=== PATIENT | male | born 1990 | race Caucasian/White ===

== ENCOUNTER → 2020-08-24 09:24 | Outpatient (BNVA) | payer MEDICAID, SELFPAY | PROVIDERS: Visit Provider Specialist | DX: G40.219 Localization-related (focal) (partial) symptomatic epilepsy and epileptic syndromes with complex partial seizures, intractable, without status epilepticus (principal); F32.9 Major depressive disorder, single episode, unspecified; M62.838 Other muscle spasm; G57.01 Lesion of sciatic nerve, right lower limb; F17.290 Nicotine dependence, other tobacco product, uncomplicated | CPT/HCPCS: 99205 ==

== ENCOUNTER → 2020-09-08 10:03 | Outpatient (BNVA) | payer MEDICAID, SELFPAY | PROVIDERS: Referring Provider Specialist; Visit Provider Specialist | DX: G40.219 Localization-related (focal) (partial) symptomatic epilepsy and epileptic syndromes with complex partial seizures, intractable, without status epilepticus (principal); F17.210 Nicotine dependence, cigarettes, uncomplicated | CPT/HCPCS: 95816 ==

== ENCOUNTER 2020-09-24 05:57 | Emergency (ER) | payer MEDICAID, SELFPAY ==
[2020-09-24 06:05] VITALS: BP 105/64; PULSE 66; RESP 16; TEMP 36.6; O2SAT 100; BMI 17.4
[2020-09-24 06:13] VITALS: BP 105/64; PULSE 77; RESP 16; TEMP 36.6; O2SAT 100
--- NOTE | 2020-09-24 06:27 | W.ED.SEIZURE ---
HPI - Seizure General: Chief Complaint: Seizure Stated Complaint: possible siezure, cut on side of face Time Seen by Provider: 09/24/20 06:13 History of Present Illness: HPI Narrative: This patient is a 30-year-old male who presents to the emergency department with complaint of a laceration/scratch to the left side of his face. Patient states he believes he had a seizure in the middle of night causing the abrasion. No active bleeding at this time. Abrasion appears to be able to be healed with Dermabond but does not require any sutures. I did discuss at length with patient about concerns. Patient states he has a long history of seizure activity and is followed locally by physician. Patient declined medical screening exam for evaluation of his seizures. Patient wishes just to have his wound checked. Patient's tetanus shot is up-to-date. complaint: seizure Associated symptoms: Deny chest pain, chills or fever(s) Review of Systems General: Reports: 10 or more systems reviewed and unremarkable except in HPI and below Const: Denies: fever(s), chills, body aches or fatigue Eyes: Denies: change in vision or blurry vision ENMT: Denies: throat pain, hoarseness or mouth pain Card: Denies: chest pain, palpitations, irregular heart rhythm, edema, swelling of feet/ankles or lightheadedness Resp: Denies: dyspnea, productive cough, non-productive cough, wheezing or pain on inspiration GI: Denies: abdominal pain, nausea or vomiting : Denies: flank pain, dysuria, urinary frequency, urinary urgency or urinary hesitancy Musc: Denies: neck pain, back pain, extremity pain, extremity swelling, joint pain, joint swelling, joint redness, joint warmth or limited range of motion Skin/Breast: Reports: other (Laceration); Denies: rash, pruritus, erythema or skin tenderness Neuro: Reports: seizure-like activity; Denies: headache(s), numbness in extremities or weakness in extremities Psych: Denies: anxiety or depression PFSH ED PFSH: Social History Smoking and tobacco status: current every day smoker e-cigarettes Alcohol intake: never History of recent travel: No Physical Exam Const: COMMON NORMALS: no acute distress, average body habitus, patient oriented x3, no limitations, healthy appearing, alert and well nourished HENMT: COMMON NORMALS: normocephalic, atraumatic, hearing grossly normal bilaterally, external ears normal, EAC's normal, TM's normal bilaterally, Normal external nose present, Normal nasal mucous membranes and turbinates present, moist oral mucous membranes, oropharynx normal, dentition normal and gingiva normal HEAD & SCALP: normocephalic and atraumatic NOSE: Normal external nose present and Normal nasal mucous membranes and turbinates present EXTERNAL EAR: Yes external ears normal EXTERNAL AUDITORY CANAL: EAC's normal TYMPANIC MEMBRANE: TM's normal bilaterally Neck/C-Spine: COMMON NORMALS: full ROM, no lymphadenopathy, supple, no meningeal signs, no JVD, Thyroid normal and No carotid bruits THYROID: Thyroid normal Chest: COMMONS NORMALS: normal inspection of the chest, normal palpation of entire chest wall, normal inspection of the breasts and normal palpation of the breasts Breast/axilla inspection: Yes normal inspection of the breasts BREAST/AXILLA PALPATION: Yes normal palpation of the breasts Resp: COMMON NORMALS: normal respiratory effort, No retractions, No use of accessory muscles, clear to auscultation bilaterally and percussion normal AUSCULTATION: clear to auscultation bilaterally PERCUSSION: percussion normal Cardio: COMMON NORMALS: no JVD, regular rate, regular rhythm, S1 normal heart sound present, S2 normal heart sound present, No gallops present (Cardio), No clicks present (Cardio), No murmurs present (Cardio), No rub (Cardio) and Peripheral pulses 2+ throughout RATE: regular rate RHYTHM: regular rhythm HEART SOUNDS: S1 normal heart sound present and S2 normal heart sound present PERIPHERAL PULSES: Peripheral pulses 2+ throughout GI: COMMON NORMALS: Normal to inspection, nondistended, normoactive bowel sounds present, Soft to palpation, non-tender, No hepatosplenomegaly present, no masses and no bruits PALPATION: Yes Soft to palpation and Yes No hepatosplenomegaly present : COMMON NORMALS: Yes no CVA tenderness BLADDER/KIDNEY EXAM: Yes no CVA tenderness Back/Pelvis: COMMON NORMALS: no CVA tenderness, thoracic and lumbar spine normal to inspection, no thoracic nor lumbar tenderness, thoraco-lumbar ROM normal and straight leg raise negative bilaterally Extremity: COMMON NORMALS: normal to inspection, full ROM, capillary refill normal, no joint enlargement, no clubbing, cyanosis or edema, no calf tenderness and no pedal edema Neuro: COMMON NORMALS: patient oriented x3 SENSORIUM/ORIENTATION: Yes alert MENINGEAL SIGNS: Yes no meningeal signs Skin: SKIN IMAGES (MALE): 1. Small thin abrasion repaired with Dermabond. No active bleeding Procedures Laceration Laceration 1: Site: face Side (If applicable): left Size (cm): 2 Description: linear and clean Depth: simple, single layer Pre-repair: irrigated extensively Skin layer closed with: other (Dermabond without difficulty) Course Reevaluation(s): Reevaluation #1: This patient is a 30-year-old male who presents to the emergency department with complaint of a laceration/scratch to the left side of his face. Patient states he believes he had a seizure in the middle of night causing the abrasion. No active bleeding at this time. Abrasion appears to be able to be healed with Dermabond but does not require any sutures. I did discuss at length with patient about concerns. Patient states he has a long history of seizure activity and is followed locally by physician. Patient declined medical screening exam for evaluation of his seizures. Patient wishes just to have his wound checked. Patient's tetanus shot is up-to-date. Wound cleansed with saline and repaired with Dermabond. Patient be discharged per his request. Patient should follow up with his primary care physician or neurology for chronic seizure activity for possible medication adjustments if needed. Time: 06:30 Vital Signs: Vital signs: Vital Signs Temperature 97.8 F 09/24/20 06:13 Pulse Rate 77 09/24/20 06:13 Respiratory Rate 16 09/24/20 06:13 Blood Pressure 105/64 09/24/20 06:13 Pulse Oximetry 100 09/24/20 06:13 MDM - Seizure MDM Narrative: Medical decision making narrative: This patient is a 30-year-old male who presents to the emergency department with complaint of a laceration/scratch to the left side of his face. Patient states he believes he had a seizure in the middle of night causing the abrasion. No active bleeding at this time. Abrasion appears to be able to be healed with Dermabond but does not require any sutures. I did discuss at length with patient about concerns. Patient states he has a long history of seizure activity and is followed locally by physician. Patient declined medical screening exam for evaluation of his seizures. Patient wishes just to have his wound checked. Patient's tetanus shot is up-to-date. Wound cleansed with saline and repaired with Dermabond. Patient be discharged per his request. Patient should follow up with his primary care physician or neurology for chronic seizure activity for possible medication adjustments if needed. Discharge Plan Discharge Patient Disposition: Home Clinical Impression: Seizure disorder, Laceration of face Condition: Stable Prescriptions: No Action citalopram 20 mg tablet 20 mg PO DAILY Qty: 30 RF: 5 levetiracetam [Keppra XR] 750 mg tablet extended release 24 hr 1,500 mg PO DAILY Qty: 60 RF: 5 lorazepam 2 mg/mL concentrate 2 mg buccal DAILY PRN (Reason: sedation) Qty: 30 RF: 1 lorazepam [Lorazepam Intensol] 2 mg/mL concentrate 2 mg PO ONCE PRN (Reason: seizures) Qty: 30 RF: 2 Discharge Orders: Discharge ED (Routine); Ordered 09/24/20 Ordered By: Matt Angeles Referrals: Senait Mei MD [Primary Care Provider] - Patient Instructions: Opioid Safety Activity Restrictions/Additional Instructions: Wound cleansed with saline and repaired with Dermabond. Patient be discharged per his request. Patient should follow up with his primary care physician or neurology for chronic seizure activity for possible medication adjustments if needed. Coding Level of Care Code ED Information Technology Security Manager for Tod Caro
[2020-09-24] MEDS: chlorPROMazine 25 mg Tablet PO (07:08)
[2020-09-24 07:13] VITALS: BP 105/64; PULSE 77; RESP 16; TEMP 36.6; O2SAT 100
== END 2020-09-24 07:13 | disposition home or self-care (01) ==
PROVIDERS: Emergency Provider Emergency Medicine; PCP Specialist
DX: G40.909 Epilepsy, unspecified, not intractable, without status epilepticus (principal); S01.81XA Laceration without foreign body of other part of head, initial encounter; F17.290 Nicotine dependence, other tobacco product, uncomplicated; X58.XXXA Exposure to other specified factors, initial encounter
CPT/HCPCS: 12011; 99283; Q0161

== ENCOUNTER 2020-10-27 15:19 | Outpatient (CLI) | payer MEDICAID, SELFPAY ==
--- NOTE | 2020-10-27 15:30 | MR_ITS ---
WS: [id number] MRI HEAD WITHOUT CONTRAST TECHNIQUE: Sagittal T1, T2 axial, T2 axial FLAIR, axial and coronal T1 images, axial susceptibility w eighted imaging, axial diffusion weighted images, and coronal T2 images were obtained. CLINICAL INFORMATION: G40.909 - Epilepsy, unspecified, not intractable, without... COMPARISON: None. FINDINGS: No evidence of restricted diffusion to suggest acute ischemia. Ventricular system and basal cisterns are patent. Foci of T2 signal abnormality in both anterior temporal lobes somewhat symmetric in distr ibution. This has a chronic appearance and is subcortical in location with involvement of the right g reater than left cortex and adjacent white matter. Suggestion of mild cortical thickening on the righ t. Small amount of associated T1 hypointensity in these areas more prominent on the left. Primary con siderations include focal cortical dysplasia, parr matter heterotopia, or congenital migration anomal ies. Less likely additional considerations include glioma related to prior trauma, remote ischemia, o r remote infection/inflammatory insult. No hemosiderin in these areas. Mesial temporal lobes are norm al in appearance. Normal amygdala. No significant hippocampal atrophy or mesial temporal sclerosis. Additional tiny punctate focus of T2 signal abnormality in the right posterior frontal lobe of doubtf ul clinical significance. Congenital vermian atrophy. Benign magna cisterna magna. Cerebellar hemisph eres are otherwise normal in appearance. Normal midbrain and ric. Normal brain stem. Normal vascular flow voids at the skull base. No extra-axial fluid collections. No evidence of mass or mass effect. Sinusitis right maxillary sinus with opacification. Paranasal sinuses and mastoid air cells are other cheng well aerated. Normal optic chiasm and pituitary infundibulum. MR/MR head wo con* [id number] IMPRESSION: 1. Small foci of T2 hyperintensity in the bilateral anterior temporal lobes lynn bcortical in location extending into the adjacent white matter measuring 8 mm o n the left and 9 mm on the right. Involvement of the cortex right greater than left. These are nonspecific in appearance but differential considerations inclu de focal cortical dysplasia, congenital migrational anomalies, parr matter hete rotopia, or focal gliosis which could be related to remote prior trauma, ischem ia, or infectious/inflammatory etiologies. Recommend further evaluation with ga dolinium to ensure no enhancement if this has not been performed previously. 2. No other suspicious intracranial signal abnormalities. 3. Mesial temporal lobes are normal in appearance. Normal parahippocampal gyru s and amygdala. 4. 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 5. Left maxillary sinusitis. 6. No hemosiderin in the anterior temporal lobes.
== END 2020-10-27 15:20 | disposition home or self-care (01) ==
LOC: RADSHAW 15:24
PROVIDERS: PCP Specialist; Visit Provider Specialist
DX: G40.909 Epilepsy, unspecified, not intractable, without status epilepticus (principal); J32.0 Chronic maxillary sinusitis; G31.9 Degenerative disease of nervous system, unspecified
CPT/HCPCS: 70551

== ENCOUNTER → 2020-11-03 10:26 | Outpatient (BNVA) | payer MEDICAID, SELFPAY | PROVIDERS: PCP Specialist; Visit Provider Specialist | DX: G40.219 Localization-related (focal) (partial) symptomatic epilepsy and epileptic syndromes with complex partial seizures, intractable, without status epilepticus (principal); G40.119 Localization-related (focal) (partial) symptomatic epilepsy and epileptic syndromes with simple partial seizures, intractable, without status epilepticus; F17.290 Nicotine dependence, other tobacco product, uncomplicated | CPT/HCPCS: 99215 ==

== ENCOUNTER → 2020-12-15 10:44 | Outpatient (BNVA) | payer MEDICAID, SELFPAY | PROVIDERS: Visit Provider Specialist | DX: G40.119 Localization-related (focal) (partial) symptomatic epilepsy and epileptic syndromes with simple partial seizures, intractable, without status epilepticus (principal); G43.001 Migraine without aura, not intractable, with status migrainosus | CPT/HCPCS: 96372; 99215; J1885 ==

== ENCOUNTER 2021-03-16 17:31 | Emergency (ER) | payer MEDICAID, SELFPAY ==
[2021-03-16] VITALS (29 sets, daily range): BP systolic 87–121; BP diastolic 49–79; PULSE 43–59; RESP 14–17; O2SAT 98–100; BMI 16.7
--- NOTE | 2021-03-16 17:38 | CTR_ITS ---
PROCEDURE INFORMATION: Exam: CT Maxillofacial Without Contrast Exam date and time: 03/16/2021 5:38 PM Age: 30 years old Clinical indication: Other: Od. PT intubated; Additional info: Fall TECHNIQUE: Imaging protocol: Computed tomography images of the face without contrast. Sagittal and coronal reformatted images were created and reviewed. Radiation optimization: All CT scans at this facility use at least one of these dose optimization techniques: automated exposure control; mA and/or kV adjustment per patient size (includes targeted exams where dose is matched to clinical indication); or iterative reconstruction. COMPARISON: CT facial bones wo con* [id number] 02/13/2019 12:08 AM RADIATION DOSE METRICS: Total DLP (mGy-cm): 754.45 FINDINGS: Tubes, catheters and devices: There is an endotracheal tube extending into the hypopharynx. The tip is not included in the study. Orbital cavity: Globes and lenses, extraocular muscles, and optic nerves are intact bilaterally. No acute intraorbital abnormality. Bones/joints: Right and left temporomandibular joints are intact. Right and left pterygoid plates are intact. Mild left nasal septal deviation. There is a mildly depressed fracture of the mid left zygomatic arch. Age is indeterminate, this is new compared with the prior study however. Paranasal sinuses: Moderate opacification in the right maxillary sinus and mild opacification in the right and left sphenoid and left maxillary sinuses. Mastoid air cells: Visualized mastoid air cells are clear. Soft tissues: No soft tissue swelling. No radiopaque foreign body. Dental: Cavitary disease in multiple maxillary and mandibular teeth. Nasopharynx: There is fluid in the nasopharynx, oropharynx, and hypopharynx. There is a somewhat linear shaped focus in the inferior nasopharynx and oropharynx (series 602, images 31-45 and series 4, images 18-31). A possible foreign body cannot be ruled out. Recommend clinical correlation. CT/CT facial bones wo con* [id number] IMPRESSION: 1. There is a mildly depressed fracture of the mid left zygomatic arch. Age is indeterminate, this is new compared with the prior study however. 2. There is a somewhat linear shaped focus in the inferior nasopharynx and oropharynx. A possible foreign body cannot be ruled out. Recommend clinical correlation. 3. There is fluid in the nasopharynx, oropharynx, and hypopharynx. 4. Moderate opacification in the right maxillary sinus and mild opacification in the right and left sphenoid and left maxillary sinuses. 5. Cavitary disease in multiple maxillary and mandibular teeth. 6. Incidental/nonacute findings are listed in the report. Radiation Dose CTDIVOL = (mGy): DLP = 754.45 (mGy-cm)
--- NOTE | 2021-03-16 17:38 | ECG_ITS ---
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 Measurements Intervals [place] Rate: 42 P: 62 DC: 152 QRS: 78 QRSD: 97 T: 75 QT: 563 QTc: 475 Interpretive Statements SINUS BRADYCARDIA PROLONGED QT INTERVAL No previous ECG available for comparison Electronically Signed On 03-17-2021 9:58:56 CEMENT MASON by Mabel Espino M.D. [id number]
--- NOTE | 2021-03-16 17:38 | XRR_ITS ---
PROCEDURE INFORMATION: Exam: XR Chest Exam date and time: 03/16/2021 5:38 PM Age: 30 years old Clinical indication: Device placement; Ett placement (vent status); Additional info: Respiratory failure TECHNIQUE: Imaging protocol: XR of the chest. Views: 1 view. COMPARISON: CT Chest/Abdomen/Pelvis wo IV 03/12/2019 4:13 PM FINDINGS: Tubes, catheters and devices: There is an endotracheal tube with the tip 5.1 cm above the bonnie. Lungs: Lungs are clear bilaterally. Pleural spaces: No pleural effusion. No pneumothorax. Heart/Mediastinum: The cardiac silhouette and mediastinal contours are unremarkable. Bones/joints: Unremarkable for age. XR/XR chest 1V portable [id number] IMPRESSION: 1. No acute cardiopulmonary process. 2. There is an endotracheal tube with the tip 5.1 cm above the bonnie. Radiation Dose CTDIVOL = (mGy): DLP = (mGy-cm)
--- NOTE | 2021-03-16 17:38 | CTR_ITS ---
PROCEDURE INFORMATION: Exam: CT Head Without Contrast Exam date and time: 03/16/2021 5:38 PM Age: 30 years old Clinical indication: Other: Od. PT intubated; Additional info: Fall TECHNIQUE: Imaging protocol: Computed tomography of the head without contrast. Sagittal and coronal reformatted images were created and reviewed. Radiation optimization: All CT scans at this facility use at least one of these dose optimization techniques: automated exposure control; mA and/or kV adjustment per patient size (includes targeted exams where dose is matched to clinical indication); or iterative reconstruction. COMPARISON: MR head wo con* [id number] 10/27/2020 3:54 PM RADIATION DOSE METRICS: Total DLP (mGy-cm): 811.36 FINDINGS: Brain: No intra-axial or extra-axial masses. Salazar-white matter differentiation is preserved. No cerebral edema. No extra-axial fluid collections. No evidence for Chiari 1 malformation. No acute intracranial hemorrhage. No acute infarct. No midline shift. Incidental note of a wero cisterna magna. Cerebral ventricles: No hydrocephalus. Paranasal sinuses: Moderate opacification in the visualized right maxillary sinus and mild opacification in the right and left sphenoid sinuses. Mastoid air cells: Unremarkable as visualized. Orbital cavity: No acute abnormality in the visualized orbits. Bones/joints: No acute fracture. Soft tissues: No acute abnormality of the extracranial soft tissues. CT/CT head wo con* [id number] IMPRESSION: 1. No acute abnormality of the brain. 2. Incidental/nonacute findings are listed in the report. Radiation Dose CTDIVOL = (mGy): DLP = 811.36 (mGy-cm)
[2021-03-16 17:39] LABS: Glucose Point of Care 158 mg/dL (70-110)
--- NOTE | 2021-03-16 17:39 | CTR_ITS ---
PROCEDURE INFORMATION: Exam: CT Cervical Spine Without Contrast Exam date and time: 03/16/2021 5:39 PM Age: 30 years old Clinical indication: Other: Od. PT intubated; Additional info: Eval fracture TECHNIQUE: Imaging protocol: Computed tomography images of the cervical spine without contrast. Sagittal, oblique axial, and coronal reformatted images were created and reviewed. Radiation optimization: All CT scans at this facility use at least one of these dose optimization techniques: automated exposure control; mA and/or kV adjustment per patient size (includes targeted exams where dose is matched to clinical indication); or iterative reconstruction. COMPARISON: CT Cervical Spine wo* [id number] 03/17/2019 8:24 PM RADIATION DOSE METRICS: Total DLP (mGy-cm): 323.83 FINDINGS: Tubes, catheters and devices: There is an endotracheal tube extending into the trachea, the tip is not included in the study. Bones/joints: Vertebral body height is maintained. No subluxation. Normal bone mineralization. No acute fracture. Discs/Spinal canal/Neural foramina: No significant disc protrusion. No severe spinal canal stenosis. No significant neural foraminal narrowing. Epidural space: No evidence for an epidural hematoma. Nasopharynx: There is a somewhat linear shaped focus in the inferior nasopharynx and oropharynx. A possible foreign body cannot be ruled out (series 3, images 15-28 and series 601, images 23-36). There is fluid in the nasopharynx, oropharynx, and hypopharynx. Lungs: Visualized lungs are clear. Soft tissues: No soft tissue swelling. No radiopaque foreign body. CT/CT cervical spin wo con* [id number] IMPRESSION: 1. There is a somewhat linear shaped focus in the inferior nasopharynx and oropharynx. A possible foreign body cannot be ruled out. Recommend clinical correlation. 2. No acute fracture of the cervical spine. 3. There is fluid in the nasopharynx, oropharynx, and hypopharynx. Radiation Dose CTDIVOL = (mGy): DLP = 323.83 (mGy-cm)
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
[2021-03-16] MEDS: propofol 1,000 MG/100 ML INJ 16.2 MG IV (17:58)
[2021-03-16 18:15] LABS: ABG PCO2 39.6 mmHg (35-45); ABG PH Result 7.43 (7.35-7.45); Arterial Blood Gas Hematocrit 43.3 % (42-52); Base Excess ABG 2.1 mmol/L (-2.0-2.0); Blood Gas Allen Test Pos; Blood Gas Operator Identificat SH; Blood Gas Sample Site Radial, left; Blood Gas Sample Type Arterial; HCO3 ABG 26.4 mmol/L (22-26)
[2021-03-16 18:16] LABS: Blood Gas Tidal Volume 0.45; Oxygen Device NC
--- NOTE | 2021-03-16 18:22 | PC.NURSE ---
PROPOFOL STARTED AT 50MCG/KG PER PHYSICIAN. TITRATED DOWN TO 10MCG/KG D/T BP OF 85/50. WILL TITRATE PER PROTOCOL AND CONTINUE TO MONITOR BP.
[2021-03-16 18:33] LABS: Basophils % 0.3 %; Eosinophils % 0.3 %; Hematocrit 45.5 % (42.0-52.0); Hemoglobin 14.8 g/dL (11.7-16.6); Lymphocytes # 3.5 10^3/uL (0.8-4.8); Lymphocytes % 29.1 %; Mean Corpuscular HGB Conc 32.5 g/dL (30.0-36.0); Mean Corpuscular Hemoglobin 29.1 pg (28.0-34.0); Mean Corpuscular Volume 89.6 fl (80-94); Mean Platelet Volume 10.5 fL (7.4-10.4); Monocytes # 0.7 10^3/uL (0.2-0.9); Neutrophils # 7.63 10^3/uL (1.8-7.7); Nucleated Red Blood Cells % 0 %; Platelet Count 404 10^3/cmm (130-400); Red Blood Count 5.08 10^6/uL (4.1-5.3); White Blood Count 11.9 10^3/uL (4.0-10.0)
[2021-03-16 19:00] LABS: Troponin(5th) Baseline 6 ng/L (0-15)
[2021-03-16 19:02] LABS: Alanine Aminotransferase 13 U/L (0-41); Alcohol Level 16 mg/dL (0-10); Alkaline Phosphatase 96 IU/L (40-130); Aspartate Amino Transferase 17 U/L (0-40); Blood Urea Nitrogen 8 mg/dL (6-20); Calcium 9.7 mg/dL (8.5-10.5); Carbon Dioxide 23 mmol/L (22-29); Chloride 102 mmol/L (98-107); Creatine Phosphokinase 71 U/L (39-308); Globulin 3.8 g/dL (1.3-4.6); Glomerular Filtration Rate 160.4 mL/min (90-130); Glucose 221 mg/dL (65-115); Lipase 11 U/L (13-60); Osmolality Calculated 301 mOsm/kg (285-295); Salicylate 2.3 mg/dL (3-10); Sodium 143 mmol/L (136-145); Total Bilirubin 0.4 mg/dL (0.15-1.2); Total Protein 8.8 g/dL (6.6-8.7)
[2021-03-16 19:03] LABS: INR 1.01 (0.8-1.2)
[2021-03-16] MEDS: midazolam 1 mg/mL INJ 2 mL 4 MG (19:03)
[2021-03-16] MEDS: haloperidol inj 5 mg/mL INJ 1 mL IVP ×2 (19:03→19:48)
--- NOTE | 2021-03-16 19:03 | PC.NURSE ---
NURSE INSTRUCTED TO TITRATE PROPOFOL TO 50MCG/KG. BP 84/50.
[2021-03-16 19:04] LABS: Partial Thromboplastin Time 26.4 SECONDS (23.9-36.7)
[2021-03-16 19:10] LABS: Acetaminophen < 5.0 ug/mL (10-30); Anion Gap 21.2 (5-19)
[2021-03-16 19:11] LABS: Potassium 3.2 mmol/L (3.5-5.1)
[2021-03-16] MEDS: sodium chloride 0.9% 1,000 ML 999 ML IV ×4 (19:25→23:39)
[2021-03-16 20:41] LABS: Add Urine Microscopic? YES; Bilirubin Urine Neg (Negative); Blood Urine Neg (Negative); Glucose Urine UA Norm (Normal); Ketones Urine Negative (Negative); Leukocyte Esterase Urine Negative (Negative); Nitrate Urine Negative (Negative); Protein Urine 1+ (Negative); Urine Appearance Clear (CLEAR); Urine Color Yellow (Yellow); Urobilinogen Urine Neg (Negative); pH Urine 6 (5-7)
[2021-03-16 20:46] LABS: Add Urine Culture? No; Mucus Urine 4+ /hpf; RBC Urine 0-4 /hpf (0-2); Squamous Epithelial Cell Urine RARE /hpf (0-5); WBC Urine RARE /hpf (0-5)
[2021-03-16 20:48] LABS: Troponin 5 2HR 19.55 ng/L (0-15)
[2021-03-16 20:49] LABS: Amphetamines Screen Urine Negative (Negative); Barbiturates Screen Urine Negative (Negative); Benzodiazepines Screen Urine Positive (Negative); Cocaine Screen Urine Negative (Negative); Opiate Screen Urine Positive (Negative); PCP Screen Urine Negative (Negative); THC Screen Urine Positive (Negative)
[2021-03-16 20:55] LABS: Troponin 5 2HR Delta 13.55 ABS# (0-10)
--- NOTE | 2021-03-16 21:19 | PC.NURSE ---
sent Pts wallet, Phone, and clothing home with mother.
[2021-03-16 21:26] LABS: SARS Covid-2 Antigen Negative (Negative)
[2021-03-16] MEDS: magnesium sulfate premix 2 GM/50 ML PIGGYBACK IV (22:21)
[2021-03-16] MEDS: propofol 1,000 MG/100 ML INJ 1 MG IV (23:22)
== END 2021-03-16 23:48 ==
PROVIDERS: Emergency Provider Emergency Medicine
DX: F19.20 Other psychoactive substance dependence, uncomplicated (principal); R41.82 Altered mental status, unspecified; J96.90 Respiratory failure, unspecified, unspecified whether with hypoxia or hypercapnia; Z20.822 Contact with and (suspected) exposure to COVID-19
CPT/HCPCS: 36415; 36416; 36600; 51702; 70450; 70486; 71045; 72125; 80053; 80306; 80307; 81001; 82550; 82803; 82962; 83690; 84484; 85025; 85610; 85730; 87426; 93005; 94002; 94799; 96365; 96366; 96367; 96375; 99291; J1630; J2250; J2704; J3010; J3475; J3490; J7030

== ENCOUNTER → 2021-05-03 08:33 | Outpatient (BNVA) | payer MEDICAID, SELFPAY | PROVIDERS: Visit Provider Specialist | DX: G40.119 Localization-related (focal) (partial) symptomatic epilepsy and epileptic syndromes with simple partial seizures, intractable, without status epilepticus (principal); F17.290 Nicotine dependence, other tobacco product, uncomplicated | CPT/HCPCS: 99214 ==

== ENCOUNTER 2021-07-11 14:07 | Emergency (ER) | payer MEDICAID, SELFPAY ==
--- NOTE | 2021-07-11 14:13 | CTR_ITS ---
PROCEDURE INFORMATION: Exam: CT Head Without Contrast Exam date and time: 07/11/2021 2:30 PM Age: 31 years old Clinical indication: Condition or disease; Convulsions or seizures; Epilepsy; Severity not specified; Unspecified; Patient HX: Seizure w fall on concrete - HX of sz TECHNIQUE: Imaging protocol: Computed tomography of the head without contrast. Radiation optimization: All CT scans at this facility use at least one of these dose optimization techniques: automated exposure control; mA and/or kV adjustment per patient size (includes targeted exams where dose is matched to clinical indication); or iterative reconstruction. COMPARISON: CT head wo con* [id number] 03/16/2021 6:07 PM RADIATION DOSE METRICS: Total DLP (mGy-cm): 837.39 FINDINGS: Brain: There is no acute intracranial hemorrhage. No extra-axial fluid collection. No evidence of acute infarct. Salazar white differentiation is intact. There is no evidence of mass. There is no mass effect or midline shift. Cerebral ventricles: No ventriculomegaly. Paranasal sinuses: There is small amount of fluid seen in right maxillary sinus also present on prior examination. There is mucosal thickening right sphenoid sinus and small retention cyst or polyp in left sphenoid sinus unchanged from prior examination. Mastoid air cells: No significant mastoid effusion. Bones/joints: No acute fracture. Soft tissues: Unremarkable as visualized. CT/CT head wo con* [id number] IMPRESSION: No evidence of acute intracranial abnormality. No acute hemorrhage. No evidence of acute infarct or mass.
--- NOTE | 2021-07-11 14:18 | W.ED.SEIZURE ---
HPI - Seizure General: Chief Complaint: Seizure Stated Complaint: SEIZURE Time Seen by Provider: 07/11/21 14:09 Source: patient and EMS Mode of arrival: EMS Limitations: no limitations History of Present Illness: HPI Narrative: 31-year-old male who has a history of seizures. Takes Depakote for seizures states that he had a [place]. Per EMS the seizure lasted roughly 5 minutes was about 30 minutes when they arrived patient was postictal he still combative when he first got here he is now starting to wake up and was able to follow my commands. Unsure if he had a head injury denies any recent fevers Associated symptoms: Deny chest pain, chills or fever(s) Review of Systems Const: Denies: fever(s), chills, body aches or change in appetite Eyes: Denies: blurry vision or eye discomfort ENMT: Denies: throat pain or dental pain Card: Denies: chest pain Resp: Denies: dyspnea GI: Denies: abdominal pain, nausea, vomiting or diarrhea : Denies: dysuria Musc: Denies: neck pain or back pain Skin/Breast: Denies: rash Neuro: Reports: seizure-like activity Psych: Denies: depression Alex/Lymph: Denies: easy bruising All/Imm: Denies: urticaria PFSH ED PFSH: Medical History (Updated 07/11/21 @ 15:57 by Corine Perdomo MD) New onset seizure with history of head trauma Social History Smoking and tobacco status: current every day smoker e-cigarettes Alcohol intake: never History of recent travel: No Physical Exam Const: COMMON NORMALS: patient oriented x3 and healthy appearing GENERAL APPEARANCE: lethargic ORIENTATION/CONSCIOUSNESS: Yes lethargic HENMT: COMMON NORMALS: normocephalic and atraumatic HEAD & SCALP: normocephalic and atraumatic Eye: COMMON NORMALS: Equal, round and reactive pupils present and EOMs intact bilaterally PUPIL: Yes Equal, round and reactive pupils present Neck/C-Spine: COMMON NORMALS: full ROM and supple Chest: COMMONS NORMALS: normal inspection of the chest and normal palpation of entire chest wall Resp: COMMON NORMALS: normal respiratory effort, No retractions, No use of accessory muscles and clear to auscultation bilaterally AUSCULTATION: clear to auscultation bilaterally Cardio: COMMON NORMALS: regular rate, regular rhythm and No murmurs present (Cardio) RATE: regular rate RHYTHM: regular rhythm GI: COMMON NORMALS: Normal to inspection, nondistended, normoactive bowel sounds present, Soft to palpation, non-tender and no masses PALPATION: Yes Soft to palpation Extremity: COMMON NORMALS: normal to inspection and full ROM Neuro: COMMON NORMALS: patient oriented x3, moves all extremities and no focal motor deficits SENSORIUM/ORIENTATION: Yes lethargic Psych: COMMON NORMALS: mental status grossly normal, Normal thought process present and cooperative THOUGHT PROCESS: Normal thought process present Skin: COMMON NORMALS: no rashes or lesions noted and no wounds GENERAL SKIN EXAM: no rashes or lesions noted Course Vital Signs: Vital signs: Vital Signs Temperature 97.6 F 07/11/21 14:34 Pulse Rate 69 07/11/21 15:43 Respiratory Rate 14 07/11/21 15:43 Blood Pressure 112/67 07/11/21 15:43 Pulse Oximetry 98 07/11/21 15:43 MDM - Seizure MDM Narrative Medical decision making narrative: Patient presents here with a witnessed seizure. Patient's blood work head CT are all normal Depakote level was low did give him Depakote here he is to take his med as prescribed follow-up with his neurologist return if worsening he understands agrees to plan. Lab Data Result diagrams: 07/11/21 14:26 Labs: Radiology Impressions Head CT 07/11/21 14:13 IMPRESSION: No evidence of acute intracranial abnormality. No acute hemorrhage. No evidence of acute infarct or mass. Laboratory Results Sodium 138 mmol/L (136-145) 07/11/21 14:26 Potassium 3.4 mmol/L (3.5-5.1) L 07/11/21 14:26 Chloride 96 mmol/L (98-107) L 07/11/21 14:26 Carbon Dioxide 14 mmol/L (22-29) L 07/11/21 14:26 Anion Gap 31.4 (5-19) H 07/11/21 14:26 BUN 8 mg/dL (6-20) 07/11/21 14:26 Creatinine 0.8 mg/dL (0.7-1.2) 07/11/21 14:26 GFR Calculation 114.3 mL/min (90-130) 07/11/21 14:26 Glucose 213 mg/dL (65-115) H 07/11/21 14:26 Calculated Osmolality 291 mOsm/kg (285-295) 07/11/21 14:26 Calcium 9.8 mg/dL (8.5-10.5) 07/11/21 14:26 Valproic Acid 7.4 ug/mL (50-100) L 07/11/21 14:26 Discharge Plan Discharge Patient Disposition: Home Clinical Impression: Generalized seizure Condition: Stable Prescriptions: No Action lorazepam 2 mg/mL concentrate 2 mg buccal DAILY PRN (Reason: sedation) Qty: 30 1RF Rx Instructions: Give 1 mL (2 mg) by mouth as needed for seizure levetiracetam [Keppra XR] 750 mg tablet extended release 24 hr 1,500 mg PO DAILY Qty: 90 5RF citalopram 20 mg tablet 20 mg PO DAILY Qty: 30 5RF divalproex [Depakote ER] 250 mg tablet extended release 24 hr 500 mg PO DAILY Qty: 120 5RF lorazepam [Lorazepam Intensol] 2 mg/mL concentrate 2 mg PO ONCE PRN (Reason: seizures) Qty: 30 2RF Discharge Orders: Discharge ED (Routine); Ordered 07/11/21 Ordered By: Corine Perdomo Discharge Diet: Advance as tolerated Discharge Activity: Resume usual activity Patient Instructions: Generalized Tonic Clonic Seizures (ED) Coding Level of Care Code ED Licensed Final Expense Agents for Tod Fwd Exam Comprehensive
[2021-07-11 14:34] VITALS: BP 120/73; PULSE 94; RESP 16; TEMP 36.4; O2SAT 96; BMI 18.8
[2021-07-11 14:41] VITALS: BP 120/73; PULSE 88; RESP 16; O2SAT 97
[2021-07-11 15:00] LABS: Anion Gap 31.4 (5-19); Blood Urea Nitrogen 8 mg/dL (6-20); Calcium 9.8 mg/dL (8.5-10.5); Carbon Dioxide 14 mmol/L (22-29); Chloride 96 mmol/L (98-107); Glomerular Filtration Rate 114.3 mL/min (90-130); Glucose 213 mg/dL (65-115); Osmolality Calculated 291 mOsm/kg (285-295); Potassium 3.4 mmol/L (3.5-5.1); Sodium 138 mmol/L (136-145)
[2021-07-11] MEDS: sodium chloride 0.9% 1,000 ML 999 ML IV (15:38)
[2021-07-11 15:43] VITALS: BP 112/67; PULSE 69; RESP 14; O2SAT 98
[2021-07-11 15:49] LABS: Valproic Acid Level 7.4 ug/mL (50-100)
[2021-07-11 16:01] VITALS: BP 130/76; PULSE 67; RESP 14; O2SAT 98
[2021-07-11] MEDS: acetaminophen 500 mg Tablet 1000 MG PO (16:20)
--- NOTE | 2021-07-11 16:37 | PC.NURSE ---
Contacted patient regarding vape pen left in room. Pt stated to just toss the vape pen in the trash. Vape pen discarded.
== END 2021-07-11 16:25 | disposition home or self-care (01) ==
PROVIDERS: Emergency Provider Emergency Medicine
DX: G40.409 Other generalized epilepsy and epileptic syndromes, not intractable, without status epilepticus (principal); F17.290 Nicotine dependence, other tobacco product, uncomplicated
CPT/HCPCS: 70450; 80048; 80164; 96360; 99284; J7030

== ENCOUNTER 2021-11-10 20:52 | Emergency (ER) | payer MEDICAID, SELFPAY ==
--- NOTE | 2021-11-10 20:53 | XRR_ITS ---
PROCEDURE INFORMATION: Exam: XR Left Hand Exam date and time: 11/10/2021 9:15 PM Age: 31 years old Clinical indication: Injury or trauma; Fall; Fracture, traumatic injury; Closed fracture; Left; Little finger TECHNIQUE: Imaging protocol: Radiologic exam of the Left hand. Views: 3 or more views. COMPARISON: No relevant prior studies available. FINDINGS: Bones/joints: Acute nondisplaced fracture of the proximal 5th metacarpal. No additional fractures are noted. No acute joint abnormality demonstrated. Soft tissues: Soft tissue swelling noted. XR/XR hand LT min 3V* [id number] IMPRESSION: Acute nondisplaced fracture of the proximal 5th metacarpal.
[2021-11-10 21:09] VITALS: BP 135/75; PULSE 96; RESP 22; TEMP 36.7; O2SAT 97; BMI 17.6
--- NOTE | 2021-11-10 21:21 | W.ED.EXTPRO ---
HPI - Extremity Problem General: Chief complaint: Extremity Injury, Upper Stated complaint: left hand pain/injury Time Seen by Provider: 11/10/21 21:14 History of Present Illness: Patient was watching his son when the child started jumping on the bed and went to fall off the father then caught the boy but his hand jammed against the bed. Patient has swelling now to the ulnar aspect of the right hand. Patient reports a previous injury to the right hand but not his left hand. Review of Systems General: Reports: 10 or more systems reviewed and unremarkable except in HPI and below Resp: Denies: dyspnea GI: Denies: abdominal pain Musc: Reports: extremity pain and extremity swelling [facility] ED PFSH: Medical History (Updated 11/10/21 @ 21:27 by GEE Barriga) New onset seizure with history of head trauma Social History Smoking and tobacco status: current every day smoker e-cigarettes Alcohol intake: never History of recent travel: No Physical Exam Const: COMMON NORMALS: no acute distress HENMT: COMMON NORMALS: normocephalic HEAD & SCALP: normocephalic Neck/C-Spine: COMMON NORMALS: full ROM Chest: COMMONS NORMALS: normal inspection of the chest Resp: COMMON NORMALS: normal respiratory effort Cardio: COMMON NORMALS: regular rate RATE: regular rate Extremity: LEFT UPPER EXTREMITY: Yes hand & digits (Swelling to the ulnar side of the left hand.) Left hand and digits: Yes inspection, Yes palpation, Yes ROM and Yes neurovascular exam Skin: COMMON NORMALS: no rashes or lesions noted GENERAL SKIN EXAM: no rashes or lesions noted Course Vital Signs: Vital signs: Vital Signs Temperature 98.0 F 11/10/21 21:09 Pulse Rate 96 11/10/21 21:09 Respiratory Rate 22 H 11/10/21 21:09 Blood Pressure 135/75 11/10/21 21:09 Pulse Oximetry 97 11/10/21 21:09 Oxygen Delivery Me thod 11/10/21 21:09 MDM - Extremity (Nontraumatic) Medical Decision Making 31-year-old male patient comes in with injury to the left hand. Patient reports catching his son and somehow injuring his hand when the son landed on him twisting his hand and causing it to be compressed into the bed. Patient has some swelling to the ulnar side of the head. And tenderness with palpation and movement of the digits. Differential diagnosis includes hematoma, fracture, dislocation. X-ray notes a fracture of the base of the fifth metacarpal. Patient will be placed in a ulnar gutter splint with recommendations for follow-up with orthopedics. Discharge Plan Discharge Patient Disposition: Home Clinical Impression: Fracture of fifth metacarpal bone of left hand Condition: Stable Prescriptions: New hydrocodone-acetaminophen 5-325 mg tablet 1 tab PO Q6H PRN (Reason: pain) Qty: 6 0RF No Action divalproex [Depakote ER] 250 mg tablet extended release 24 hr 500 mg PO DAILY Qty: 120 5RF erythromycin 5 mg/gram (0.5 %) ointment 0.5 inch ophthalmic (eye) QID 5 Days Qty: 3.5 0RF Discharge Orders: Discharge ED (Routine); Ordered 11/10/21 Ordered By: Kishore Philip Discharge Diet: Usual diet Discharge Activity: Increase activity as tolerated Patient Instructions: Hand Fracture (ED) Activity Restrictions/Additional Instructions: Keep splint clean and dry. Activity as tolerated. Case management will contact you with orthopedic follow-up appointment. You are welcome to follow-up with your own orthopedist if wanted. Return to ER for new concerns. Coding Level of Care Code ED Luggage Liner for Tod Fwevans Exam Comprehensive
[2021-11-10] MEDS: HYDROcodone-acetaminophen 5-325 mg Tablet 1 TAB PO (21:37)
--- NOTE | 2021-11-11 08:27 | DCPLANNER ---
Addendum entered by Abbie Putnam 12/07/21 16:12: patient had a follow up appointment scheduled with ortho - patient did attend appointment. Addendum entered by Abbie Putnam 11/16/21 11:21: Patient has a follow up appointment scheduled for Monday, November 17, 2021 at 8:[address] Bullock at ortho. Clinic will call patient with appointment information. Original Note: architectural practice manager had message to schedule a follow up appointment for patient with ortho. architectural practice manager sent patients information to the front office staff at ortho. Patients information will be printed and reviewed. Clinic will call patient with appointment information.
== END 2021-11-10 21:40 | disposition home or self-care (01) ==
PROVIDERS: Emergency Provider Nurse Practitioner Family
DX: M79.642 Pain in left hand (principal); S62.307A Unspecified fracture of fifth metacarpal bone, left hand, initial encounter for closed fracture; F17.290 Nicotine dependence, other tobacco product, uncomplicated; W23.0XXA Caught, crushed, jammed, or pinched between moving objects, initial encounter
CPT/HCPCS: 29125; 73130; 99283

== ENCOUNTER 2021-11-15 11:01 | Emergency (ER) | payer MEDICAID, SELFPAY ==
--- NOTE | 2021-11-15 11:05 | XR_ITS ---
WS: [id number] LEFT WRIST: 2 VIEW(S) TECHNIQUE: PA and lateral. HISTORY: wrist pain COMPARISON: 11/10/2021 Again noted is the nondisplaced oblique fracture in the proximal fifth metacarpal which does not exte nd to the joint space. The soft tissue edema has improved at the fracture site. Bones of the wrist ar e negative. No joint space abnormality. Improving soft tissue edema. XR/XR wrist LT 2V [id number] IMPRESSION: 1. No wrist fracture. 2. No change in the oblique fracture proximal fifth metacarpal.
[2021-11-15 11:19] VITALS: BP 122/79; PULSE 64; RESP 16; TEMP 37.1; O2SAT 94; BMI 17.8
[2021-11-15 11:39] VITALS: BP 122/79; PULSE 64; RESP 16; TEMP 37.1; O2SAT 94
--- NOTE | 2021-11-15 11:39 | ED_ITS ---
Documented by User: ELLIOTT Francisco 11/15/21 14:20 HPI - General Adult General: Chief complaint: General Medical Stated complaint: left wrist pain Time Seen by Provider: 11/15/21 11:29 History of Present Illness: Patient is a 31-year-old male comes to the ED with left hand and wrist pain. Patient was seen here in the ED back on November 10 for same complaint he was diagnosed with a fracture of fifth metacarpal bone of the left hand. He was sent home with 6 tablets of hydrocodone for pain and has taken all of the tablets and ran out of pain meds. He is scheduled to see the orthopedic doctor on Monday. Denies any reinjury. Patient says he just can not wait till Monday to see To get anything else for pain. Associated symptoms: Deny chest pain, dyspnea, headache(s), nausea, rash, palpitations or vomiting Review of Systems Const: Denies: fever(s), chills or fatigue Eyes: Denies: change in vision or eye discomfort ENMT: Denies: throat pain, odynophagia, nasal discharge or nasal congestion Card: Denies: chest pain, palpitations, edema, swelling of feet/ankles, dyspnea on exertion or orthopnea Resp: Denies: dyspnea, productive cough or non-productive cough GI: Denies: abdominal pain, nausea, vomiting, diarrhea, constipation or hematochezia : Denies: flank pain, difficulty urinating, dysuria or hematuria Musc: Reports: extremity pain (Left hand pain); Denies: neck pain, back pain or extremity swelling Skin/Breast: Denies: rash or new lesions Neuro: Denies: headache(s), numbness in extremities or weakness in extremities PFS ED PFSH: Medical History New onset seizure with history of head trauma Social History Smoking and tobacco status: current every day smoker e-cigarettes Alcohol intake: never History of recent travel: No Physical Exam Const: COMMON NORMALS: no acute distress, patient oriented x3 and alert GENERAL APPEARANCE: cooperative and comfortable HENMT: COMMON NORMALS: normocephalic HEAD & SCALP: normocephalic MOUTH: Normal oral and palatal mucosa present THROAT: posterior oropharynx normal and uvula midline Neck/C-Spine: COMMON NORMALS: supple GENERAL: Yes normal visual inspection Resp: COMMON NORMALS: normal respiratory effort, No retractions, No use of accessory muscles and clear to auscultation bilaterally AUSCULTATION: clear to auscultation bilaterally Cardio: COMMON NORMALS: regular rate, regular rhythm, S1 normal heart sound present, S2 normal heart sound present, No gallops present (Cardio), No clicks present (Cardio), No murmurs present (Cardio) and Peripheral pulses 2+ throughout RATE: regular rate RHYTHM: regular rhythm HEART SOUNDS: S1 normal heart sound present and S2 normal heart sound present PERIPHERAL PULSES: Peripheral pulses 2+ throughout GI: COMMON NORMALS: Normal to inspection, nondistended, normoactive bowel sounds present, Soft to palpation, non-tender and no masses PALPATION: Yes Soft to palpation : COMMON NORMALS: Yes no CVA tenderness BLADDER/KIDNEY EXAM: Yes no CVA tenderness Back/Pelvis: COMMON NORMALS: no CVA tenderness Extremity: NARRATIVE EXTREMITY EXAM: Patient's left hand is in a ulnar gutter splint and sling. Neuro: COMMON NORMALS: patient oriented x3 SENSORIUM/ORIENTATION: Yes alert GAIT: Yes Normal gait present Skin: GENERAL SKIN EXAM: dry skin Course Vital Signs: Vital signs: Vital Signs Temperature 98.8 F 11/15/21 11:57 Pulse Rate 64 11/15/21 11:57 Respiratory Rate 16 11/15/21 11:57 Blood Pressure 122/79 11/15/21 11:57 Pulse Oximetry 94 11/15/21 11:57 Oxygen Delivery Me thod 11/15/21 11:39 [facility] - General Adult Medical Decision Making Patient is a 31-year-old male comes to the ED with left hand and wrist pain. Patient was seen here in the ED back on November 10 for same complaint he was diagnosed with a fracture of fifth metacarpal bone of the left hand. Denies any reinjury or trauma. Patient ran out of pain medications and has an appoint with orthopedic doctor this coming Monday, November 17. Patient had left hand splinted with shoulder sling of left arm as well. Vitals are stable. Patient was diagnosed with subsequent visit from fracture of fifth metacarpal bone of left hand. He was discharged home with a prescription for hydrocodone to help with pain. Told to follow-up with his orthopedic doctor this coming week at his scheduled appointment. Patient understood and agreed with plan. Lab Data Radiology Impressions Wrist X-Ray 11/15/21 11:05 IMPRESSION: 1. No wrist fracture. 2. No change in the oblique fracture proximal fifth metacarpal. Discharge Plan Discharge Patient Disposition: Home Clinical Impression: Fracture of fifth metacarpal bone of left hand Qualifiers: Encounter type: subsequent encounter Fracture type: closed Metacarpal location: base Fracture alignment: nondisplaced Fracture healing: with routine healing Qualified Code(s): S62.347D - Nondisplaced fracture of base of fifth metacarpal bone, left hand, subsequent encounter for fracture with routine healing Condition: Stable Prescriptions: No Action divalproex [Depakote ER] 250 mg tablet extended release 24 hr 500 mg PO DAILY Qty: 120 5RF erythromycin 5 mg/gram (0.5 %) ointment 0.5 inch ophthalmic (eye) QID 5 Days Qty: 3.5 0RF hydrocodone-acetaminophen 5-325 mg tablet 1 tab PO Q8H PRN (Reason: pain) 3 Days Qty: 6 0RF Rx Instructions: For Dr. Suggs Discharge Orders: Discharge ED (Routine); Ordered 11/15/21 Ordered By: Nikolas Schwartz Discharge Diet: Regular Discharge Activity: Limit activity as instructed Patient Instructions: Opioid Safety Activity Restrictions/Additional Instructions: Follow-up with orthopedic doctor at next scheduled appointment. Take medications as prescribed. Return to the ER or your medical provider if condition worsens. Please read and understand discharge instructions. Thank you for choosing [facility] for your healthcare needs today. Please realize this is an emergency room and that we are providing you with a medical screening exam and this may not be complete and all inclusive of all the testing and or work up that you may need to determine your ailment or severity of your illness. It is very important that you follow up as instructed or that you return to the Emergency Department should you have concerns or if your condition changes or worsens in any way. Coding Level of Care Code ED Periodicals Clerk for Smitag Fwd Exam Comprehensive Documented by User: Wiley Sarabia DO 11/16/21 05:57 HPI - General Adult General: Chief complaint: General Medical Stated complaint: left wrist pain Time Seen by Provider: 11/15/21 11:29 [facility] ED PFSH: Medical History New onset seizure with history of head trauma Social History Smoking and tobacco status: current every day smoker e-cigarettes Alcohol intake: never History of recent travel: No Course Vital Signs: Vital signs: Vital Signs Temperature 98.8 F 11/15/21 11:57 Pulse Rate 64 11/15/21 11:57 Respiratory Rate 16 11/15/21 11:57 Blood Pressure 122/79 11/15/21 11:57 Pulse Oximetry 94 11/15/21 11:57 Oxygen Delivery Me thod 11/15/21 11:39 MDM - General Adult Medical Decision Making Patient is a 31-year-old male comes to the ED with left hand and wrist pain. Patient was seen here in the ED back on November 10 for same complaint he was diagnosed with a fracture of fifth metacarpal bone of the left hand. Denies any reinjury or trauma. Patient ran out of pain medications and has an appoint with orthopedic doctor this coming Monday, November 17. Patient had left hand splinted with shoulder sling of left arm as well. Vitals are stable. Patient was diagnosed with subsequent visit from fracture of fifth metacarpal bone of left hand. He was discharged home with a prescription for hydrocodone to help w ith pain. Told to follow-up with his orthopedic doctor this coming week at his scheduled appointment. Patient understood and agreed with plan. Chart reviewed and patient discussed with midlevel. Agree with assessment and plan. Lab Data Radiology Impressions Wrist X-Ray 11/15/21 11:05 IMPRESSION: 1. No wrist fracture. 2. No change in the oblique fracture proximal fifth metacarpal. Discharge Plan Discharge Patient Disposition: Home Clinical Impression: Fracture of fifth metacarpal bone of left hand Qualifiers: Encounter type: subsequent encounter Fracture type: closed Metacarpal location: base Fracture alignment: nondisplaced Fracture healing: with routine healing Qualified Code(s): S62.347D - Nondisplaced fracture of base of fifth metacarpal bone, left hand, subsequent encounter for fracture with routine healing Condition: Stable Prescriptions: No Action divalproex [Depakote ER] 250 mg tablet extended release 24 hr 500 mg PO DAILY Qty: 120 5RF erythromycin 5 mg/gram (0.5 %) ointment 0.5 inch ophthalmic (eye) QID 5 Days Qty: 3.5 0RF hydrocodone-acetaminophen 5-325 mg tablet 1 tab PO Q8H PRN (Reason: pain) 3 Days Qty: 6 0RF Rx Instructions: For Dr. Suggs Discharge Orders: Discharge ED (Routine); Ordered 11/15/21 Ordered By: Nikolas Schwartz Discharge Diet: Regular Discharge Activity: Limit activity as instructed Patient Instructions: Opioid Safety Activity Restrictions/Additional Instructions: Follow-up with orthopedic doctor at next scheduled appointment. Take medications as prescribed. Return to the ER or your medical provider if condition worsens. Please read and understand discharge instructions. Thank you for choosing [facility] for your healthcare needs today. Jose stack realize this is an emergency room and that we are providing you with a medical screening exam and this may not be complete and all inclusive of all the testing and or work up that you may need to determine your ailment or severity of your illness. It is very important that you follow up as instructed or that you return to the Emergency Department should you have concerns or if your condition changes or worsens in any way. Coding Level of Care Code ED Periodicals Clerk for Tod Caro Exam Comprehensive
[2021-11-15 11:57] VITALS: BP 122/79; PULSE 64; RESP 16; TEMP 37.1; O2SAT 94
== END 2021-11-15 11:57 | disposition home or self-care (01) ==
PROVIDERS: Emergency Provider Physician Assistant
DX: S62.347A Nondisplaced fracture of base of fifth metacarpal bone, left hand, initial encounter for closed fracture (principal); F17.290 Nicotine dependence, other tobacco product, uncomplicated; X58.XXXA Exposure to other specified factors, initial encounter
CPT/HCPCS: 73100; 99283

== ENCOUNTER → 2021-11-17 08:34 | Outpatient (BNVA) | payer MEDICAID, SELFPAY | PROVIDERS: Visit Provider Orthopaedic Surgery | DX: S62.347D Nondisplaced fracture of base of fifth metacarpal bone, left hand, subsequent encounter for fracture with routine healing (principal); W19.XXXD Unspecified fall, subsequent encounter | CPT/HCPCS: 26600; 99203 ==

== ENCOUNTER 2021-11-17 11:31 | Outpatient (CLI) | payer MEDICAID, SELFPAY | END 2021-11-17 11:32 | disposition home or self-care (01) | LOC: SPT 11:32 | PROVIDERS: Visit Provider Orthopaedic Surgery | DX: Z46.89 Encounter for fitting and adjustment of other specified devices (principal); S62.307D Unspecified fracture of fifth metacarpal bone, left hand, subsequent encounter for fracture with routine healing; X58.XXXD Exposure to other specified factors, subsequent encounter | CPT/HCPCS: 97760; L3984 ==

== ENCOUNTER → 2021-12-21 08:30 | Outpatient (BNVA) | payer MEDICAID, SELFPAY | PROVIDERS: Visit Provider Nurse Practitioner Family | DX: X58.XXXA Exposure to other specified factors, initial encounter (principal); S62.307A Unspecified fracture of fifth metacarpal bone, left hand, initial encounter for closed fracture | CPT/HCPCS: 73130; 99213; 99214 ==

== ENCOUNTER 2023-11-13 16:24 | Emergency (ER) | payer MEDICAID, SELFPAY ==
[2023-11-13 16:31] VITALS: BP 147/88; PULSE 93; TEMP 36.7; O2SAT 98; BMI 16.7
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
[2023-11-13] MEDS: HYDROcodone-acetaminophen 5-325 mg Tablet 1 TAB PO (17:18)
--- NOTE | 2023-11-15 07:45 | DCPLANNER ---
message sent to ortho for a follow up on a clavicle fracture.
== END 2023-11-13 18:30 | disposition home or self-care (01) ==
PROVIDERS: Emergency Provider Emergency Medicine; PCP Family Medicine
DX: S42.034A Nondisplaced fracture of lateral end of right clavicle, initial encounter for closed fracture (principal); F17.290 Nicotine dependence, other tobacco product, uncomplicated; Y04.2XXA Assault by strike against or bumped into by another person, initial encounter
CPT/HCPCS: 70450; 71045; 72125; 73030; 73060; 99284

== ENCOUNTER 2023-11-15 07:45 | Emergency (ER) | payer MEDICAID, SELFPAY ==
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
[2023-11-15 07:48] VITALS: BP 131/85; PULSE 74; RESP 14; TEMP 36.4; O2SAT 100
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
--- NOTE | 2023-11-15 08:25 | PC.NURSE ---
PT REFUSING BLOOD WORK, URINE SAMPLE AND MEDS, STATES HE IS ONLY HERE FOR XRAYS. DR. CONSTANTINO NOTIFIED. NO NEW ORDERS AT THIS TIME.
[2023-11-15 08:55] VITALS: BP 131/85; PULSE 71; O2SAT 100
== END 2023-11-15 08:57 | disposition home or self-care (01) ==
PROVIDERS: Emergency Provider Family Medicine; PCP Family Medicine
DX: S42.034A Nondisplaced fracture of lateral end of right clavicle, initial encounter for closed fracture (principal); Y04.8XXA Assault by other bodily force, initial encounter
CPT/HCPCS: 71101; 73030; 99204; 99284

== ENCOUNTER 2023-12-11 09:17 | Emergency (ER) | payer MEDICAID, SELFPAY ==
[2023-12-11 09:19] VITALS: BP 119/73; PULSE 96; RESP 18; TEMP 36.8; O2SAT 91; BMI 16.7
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
--- NOTE | 2023-12-11 09:30 | CT_ITS ---
WS: [id number] CT CERVICAL SPINE HISTORY: trauma TECHNIQUE: Contiguous 2.0 mm axial imaging performed through the entire cervical spine. Sagittal and coronal reformats also performed. All CT scans at [facility] use at least one of these dose o ptimization techniques: automated exposure control; mA and/or kV adjustment per patient size (include s targeted exams where dose is matched to clinical indication); or iterative reconstruction. DLP: 2212.24 mGy.cm COMPARISON: 11/13/2023 Slight increase in the cervical lordosis. Vertebral body heights are well-maintained. Very minimal fa cet joint arthropathy. Facet joints are normally aligned. Craniocervical junction is normal. Odontoid process is normal. No acute appearing disc protrusions or herniation. Subacute healing fracture RIGHT first rib. Age-indeterminate but probably remote fractures RIGHT se[place] nd, fourth and fifth ribs. Lung apices are clear. CT/CT cervical spin wo con* [id number] IMPRESSION: 1. No acute cervical spine fracture. 2. Subacute healing RIGHT first rib fracture. Also noted on 11/13/2023. 3. Additional age-indeterminate but probably remote fractures involving the RI GHT second, fourth and fifth ribs. 4. Increasing opacification RIGHT maxillary sinus since 11/13/2023.
--- NOTE | 2023-12-11 10:52 | ED_ITS ---
HPI - Seizure 2 General: Chief Complaint: Seizure Stated Complaint: seizure activity Time Seen by Provider: 12/11/23 09:29 History of Present Illness: HPI Narrative: 33-year-old male presents emergency room combative postictal. Patient has a known history of seizure disorder he had a seizure this morning was very combative irritable afterwards on arrival here he is extremely uncooperative. We were able to redirect him and ultimately get him to stay despite him threatening to walk out multiple times. He is not on any anticoagulants he denies any recent medication changes. Seizure History: Yes Associated symptoms: Deny chest pain, chills or fever(s) Related Data Previous Rx's Medication Instructions Recorded sulindac 200 mg tablet 200 mg PO BID PRN arthritis pain 03/27/23 #20 tabs divalproex 500 mg tablet,extended 500 mg PO DAILY #90 tabs 11/10/23 release 24 hr (Depakote ER) hydrocodone 5 mg-acetaminophen 325 1 tab PO Q6H PRN pain #14 tabs 11/13/23 mg tablet clotrimazole 1 % topical cream 1 applic topical BID 2 weeks #30 11/14/23 (Lotrimin AF (clotrimazole)) grams Clavicle strap #1 ea 11/15/23 meloxicam 15 mg tablet 15 mg PO DAILY #30 tabs 11/15/23 alprazolam 0.5 mg tablet 0.5 mg PO DAILY PRN anxiety #30 12/04/23 tabs Allergies Allergy/AdvReac Type Severity Reaction Status Date / Time No Known Allergies Allergy Verified 12/07/23 08:58 Review of Systems 2 Const: Denies: fever(s) or chills Card: Denies: chest pain Resp: Denies: dyspnea GI: Denies: abdominal pain : Denies: dysuria, urinary frequency or urinary urgency Musc: Denies: neck pain or back pain Skin/Breast: Denies: rash PFSH ED 2 PFSH: Medical History Polymyalgia Chronic pain due to trauma New onset seizure with history of head trauma Social History Smoking and tobacco/nicotine status: never used tobacco/nicotine Alcohol intake: never Substance/Drug Use: never Physical Exam 2 Const: COMMON NORMALS: no acute distress GENERAL APPEARANCE: cooperative and comfortable ORIENTATION/CONSCIOUSNESS: Yes awake HENMT: COMMON NORMALS: normocephalic and hearing grossly normal bilaterally HEAD & SCALP: normocephalic OTHER: Small area of bruising at the lateral supraorbital ridge no hematoma no deformity bone is palpably intact with no crepitus extraocular movements are fully intact Resp: COMMON NORMALS: normal respiratory effort, No retractions, No use of accessory muscles and clear to auscultation bilaterally AUSCULTATION: clear to auscultation bilaterally Cardio: COMMON NORMALS: regular rate, regular rhythm and No murmurs present (Cardio) RATE: regular rate RHYTHM: regular rhythm GI: COMMON NORMALS: Soft to palpation and No hepatosplenomegaly present A USCULTATION: Yes normoactive bowel sounds PALPATION: Yes Soft to palpation, No Tenderness to palpation present (GI), No Guarding due to palpation present (GI) and Yes No hepatosplenomegaly present Extremity: COMMON NORMALS: normal to inspection, capillary refill normal, no clubbing, cyanosis or edema, no calf tenderness and no pedal edema Skin: COMMON NORMALS: no rashes or lesions noted GENERAL SKIN EXAM: no rashes or lesions noted Course 2 Vital Signs: Vital signs: Vital Signs Temperature 98.3 F 12/11/23 09:19 Pulse Rate 63 12/11/23 13:49 Respiratory Rate 18 12/11/23 12:48 Blood Pressure 114/71 12/11/23 13:49 Pulse Oximetry 96 12/11/23 13:49 Oxygen Delivery Me thod Room Air 12/11/23 13:48 MDM - Seizure MDM Narrative Medical decision making narrative: Initially patient was postictal. 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 He did hit his head when he fell so we have done a CT CT showed an area that was concerning for possible subarachnoid blood. Dr. Swain had read it she discussed it with me she could not rule it out but she was not very convinced that it was blood however to rule it out after discussion she recommended that we repeat the CT in a few hours. Will convince the patient to repeat the CT but he initially refused all lab work. Later once his CT was done his postictal phase appeared much worn off he is much more agreeable did submit the lab work. CT came back and was negative reviewed those findings with him he is anxious to go home and request to leave. After some discussion with him we ultimately decided to let him be discharged and will contact with him results. Chemistries and CBC did not show significant abnormalities white count was slightly elevated I think was a result of his recent seizure his valproic acid level is low we will have him increase his diet valproic acid to 1000 mg a day he has a follow-up with Dr. Mei in 2 days recheck at that time return if he has any problems prior. Lab Data 12/11/23 13:27 12/11/23 13:27 Labs: Radiology Impressions Cervical Spine CT 12/11/23 09:30 IMPRESSION: 1. No acute cervical spine fracture. 2. Subacute healing RIGHT first rib fracture. Also noted on 11/13/2023. 3. Additional age-indeterminate but probably remote fractures involving the RIGHT second, fourth and fifth ribs. 4. Increasing opacification RIGHT maxillary sinus since 11/13/2023. Head CT 12/11/23 13:00 IMPRESSION: 1. No residual suspicion for acute extra-axial blood products over the LEFT frontal lobe. This was probably an artifact as it has resolved in the interval. 2. Otherwise negative noncontrast head CT. Laboratory Results WBC 15.03 10^3/uL (3.29-11.43) H 12/11/23 13:27 RBC 5.11 10^6/uL (3.85-5.65) 12/11/23 13:27 Hgb 15.10 g/dL (11.27-16.99) 12/11/23 13:27 Hct 44.8 % (37-53) 12/11/23 13:27 MCV 87.7 fl (82-101) 12/11/23 13:27 MCH 29.5 pg (27-33) 12/11/23 13:27 MCHC 33.7 g/dL (30-55) 12/11/23 13:27 RDW 12.9 % (12.1-15.1) 12/11/23 13:27 Plt Count 253 10^3/cmm (157-399) 12/11/23 13:27 MPV 9.8 fL (7.4-10.4) 12/11/23 13:27 Neut % (Auto) 90.3 % 12/11/23 13:27 Lymph % (Auto) 6.6 % 12/11/23 13:27 [place] % (Auto) 2.6 % 12/11/23 13:27 Eos % (Auto) 0.0 % 12/11/23 13:27 Baso % (Auto) 0.2 % 12/11/23 13:27 Neut # (Auto) 13.57 10^3/uL (1.8-7.7) H 12/11/23 13:27 Lymph # (Auto) 1.0 10^3/uL (0.8-4.8) 12/11/23 13:27 [place] # (Auto) 0.4 10^3/uL (0.2-0.9) 12/11/23 13:27 Eos # (Auto) 0.0 10^3/uL (0.0-0.8) 12/11/23 13:27 Baso # (Auto) 0.0 10^3/uL (0.0-0.1) 12/11/23 13:27 Nucleated RBC % (auto) 0 % 12/11/23 13:27 Nucleated RBCs # 0.0 /100WBC 12/11/23 13:27 Sodium 139 mmol/L (136-145) 12/11/23 13:27 Potassium 3.9 mmol/L (3.5-5.1) 12/11/23 13:27 Chloride 99 mmol/L (98-107) 12/11/23 13:27 Carbon Dioxide 24 mmol/L (22-29) 12/11/23 13:27 Anion Gap 19.9 (5-19) H 12/11/23 13:27 BUN 11 mg/dL (6-20) 12/11/23 13:27 Creatinine 0.7 mg/dL (0.7-1.2) 12/11/23 13:27 GFR Calculation 131.5 mL/min (90-130) H 12/11/23 13:27 Glucose 97 mg/dL (65-115) 12/11/23 13:27 Calculated Osmolality 287 mOsm/kg (285-295) 12/11/23 13:27 Calcium 9.7 mg/dL (8.5-10.5) 12/11/23 13:27 Total Bilirubin 0.8 mg/dL (0.15-1.2) 12/11/23 13:27 AST 23 U/L (0-40) 12/11/23 13:27 ALT 23 U/L (0-41) 12/11/23 13:27 Alkaline Phosphatase 112 U/L (40-130) 12/11/23 13:27 Total Protein 8.2 g/dL (6.6-8.7) 12/11/23 13:27 Albumin 4.9 g/dL (3.5-5.2) 12/11/23 13:27 Globulin 3.3 g/dL (1.3-4.6) 12/11/23 13:27 Valproic Acid 13.1 ug/mL (50-100) L 12/11/23 13:27 All radiology interpretation(s) finalized by discharge Discharge Plan Discharge Patient Disposition: Home Clinical Impression: Generalized seizure Condition: Stable Prescriptions: No Action sulindac 200 mg tablet 200 mg PO BID PRN (Reason: arthritis pain) Qty: 20 0RF (DME) Clavicle strap See Rx Instructions .Route .MEDSUPPLY Qty: 1 0RF Rx Instructions: As directed meloxicam 15 mg tablet 15 mg PO DAILY Qty: 30 2RF divalproex [Depakote ER] 500 mg tablet extended release 24 hr 500 mg PO DAILY Qty: 90 1RF clotrimazole [Lotrimin AF (clotrimazole)] 1 % cream 1 applic topical BID 14 Days Qty: 30 2RF alprazolam 0.5 mg tablet 0.5 mg PO DAILY PRN (Reason: anxiety) Qty: 30 0RF hydrocodone-acetaminophen 5-325 mg tablet 1 tab PO Q6H PRN (Reason: pain) Qty: 14 0RF Discharge Orders: Discharge ED (Routine); Ordered 12/11/23 Ordered By: Wiley Sarabia Referrals: Johnie Feng MD [Primary Care Provider] - Patient Instructions: Opioid Safety, Pain Management Activity Restrictions/Additional Instructions: Thank you for choosing [facility] for your healthcare needs today. It is very important that you follow up as instructed or that you return to the Emergency Department should you have concerns or if your condition changes or worsens in any way. You were discharged from the ER after an episode of seizure. We did repeat your CT and the initial CT there was some concern whether or not there was artifact or possible small amount of bleeding. On the follow-up CT the radiologist comfortable that the original questionable area was not active bleeding and that there was no bleeding in the brain. We did do a blood level on your antiseizure medication. You should follow-up with this with Dr. Mei when you see her at your next scheduled appointment in 2 days. Per your request we will discharging you now and when the labs that were drawn late in your visit are completed we will review and contact you if there is any abnormalities. Coding Level of Care Code ED Leg Man for Tod Caro
--- NOTE | 2023-12-11 11:09 | PC.NURSE ---
PER VERBAL ORDER FROM DR. CONSTANTINO, PLACE ORDER AND ADMIN TORADOL 60 MG IM ONCE.
[2023-12-11] MEDS: ketorolac 60 mg/2 mL INJ IM (11:14)
[2023-12-11 11:16] VITALS: BP 114/77; PULSE 62; O2SAT 100
--- NOTE | 2023-12-11 11:17 | PC.NURSE ---
PATIENT DECLINED IV NUMEROUS TIMES AND REQUESTED TO HAVE IM INJECTION FOR TORADOL.
--- NOTE | 2023-12-11 12:28 | PC.NURSE ---
PER VERBAL ORDER FROM DR. CONSTANTINO, ORDER AND ADMIN ATIVAN 1MG IM ONCE AND MORPHINE 2 MG IM ONCE. PATIENT TYPICALLY TAKES PRN ALPRAZOLAM.
[2023-12-11] MEDS: LORazepam 2 mg/mL INJ 1 mL 1 MG IM (12:47)
[2023-12-11 12:48] VITALS: RESP 18; O2SAT 99
[2023-12-11] MEDS: morphine 4 mg/mL SDV 1 mL 2 MG IM (12:48)
--- NOTE | 2023-12-11 13:00 | CT_ITS ---
WS: [id number] CT HEAD NONCONTRAST HISTORY: Earlier CT abnormal possible blood, follow-up TECHNIQUE: Contiguous axial imaging performed through the brain in 2.5 mm imaging. Bone and soft tiss ue windows. Sagittal and coronal reformats reviewed. All CT scans at [facility] use at least one of these dose optimization techniques: automated exposure control; mA and/or kV adjustment per pa tient size (includes targeted exams where dose is matched to clinical indication); or iterative recon struction. DLP: 1038.78 mGy.cm COMPARISON: 12/11/2023 at 9:46 a.m. and 11/13/2023 The previously described indeterminate possible subdural hematoma along the LEFT frontal lobe has res olved. There is no suspicion for acute blood products. No cortical edema. No atrophy or prior infarcts or herniation. Ventricles: Normal size with no hydrocephalus. Paranasal sinuses: Partial opacification of the visualized RIGHT maxillary sinus. Mastoid air cells: Well pneumatized. Calvarium and scalp: Skull is intact with no soft tissue edema or swelling. CT/CT head wo con* [id number] IMPRESSION: 1. No residual suspicion for acute extra-axial blood products over the LEFT fr ontal lobe. This was probably an artifact as it has resolved in the interval. 2. Otherwise negative noncontrast head CT.
[2023-12-11 13:33] LABS: Basophils % 0.2 %; Hematocrit 44.8 % (37-53); Lymphocytes % 6.6 %; Mean Corpuscular HGB Conc 33.7 g/dL (30-55); Mean Corpuscular Hemoglobin 29.5 pg (27-33); Mean Corpuscular Volume 87.7 fl (82-101); Mean Platelet Volume 9.8 fL (7.4-10.4); Monocytes # 0.4 10^3/uL (0.2-0.9); Monocytes % 2.6 %; Neutrophils # 13.57 10^3/uL (1.8-7.7); Neutrophils % 90.3 %; Nucleated Red Blood Cells % 0 %; Platelet Count 253 10^3/cmm (157-399); Red Blood Count 5.11 10^6/uL (3.85-5.65); Red Cell Distribution Width 12.9 % (12.1-15.1); White Blood Count 15.03 10^3/uL (3.29-11.43)
[2023-12-11 13:48] VITALS: BP 114/71; PULSE 63; O2SAT 96
[2023-12-11 13:49] VITALS: BP 114/71; PULSE 63; O2SAT 96
[2023-12-11 13:50] LABS: Alanine Aminotransferase 23 U/L (0-41); Albumin Level 4.9 g/dL (3.5-5.2); Alkaline Phosphatase 112 U/L (40-130); Anion Gap 19.9 (5-19); Aspartate Amino Transferase 23 U/L (0-40); Blood Urea Nitrogen 11 mg/dL (6-20); Calcium 9.7 mg/dL (8.5-10.5); Carbon Dioxide 24 mmol/L (22-29); Chloride 99 mmol/L (98-107); Creatinine Clr Calc Pharmacy 117.7178; Globulin 3.3 g/dL (1.3-4.6); Glomerular Filtration Rate 131.5 mL/min (90-130); Glucose 97 mg/dL (65-115); Osmolality Calculated 287 mOsm/kg (285-295); Potassium 3.9 mmol/L (3.5-5.1); Sodium 139 mmol/L (136-145); Total Bilirubin 0.8 mg/dL (0.15-1.2); Total Protein 8.2 g/dL (6.6-8.7); Valproic Acid Level 13.1 ug/mL (50-100)
--- NOTE | 2023-12-11 14:32 | PC.NURSE ---
This nurse contacted pt and given verbal order per Dr Sarabia to increase valproic acid to 2 tabs daily until he has follow up with Dr Mei. Pt verbalized understanding.
== END 2023-12-11 13:40 | disposition home or self-care (01) ==
PROVIDERS: Emergency Provider Family Medicine; PCP Family Medicine
DX: G40.409 Other generalized epilepsy and epileptic syndromes, not intractable, without status epilepticus (principal)
CPT/HCPCS: 36415; 70450; 72125; 80053; 80164; 85025; 96372; 99284; J1885; J2060; J2270

== ENCOUNTER → 2023-12-13 12:30 | Outpatient (BNVA) | payer MEDICAID, SELFPAY | PROVIDERS: PCP Family Medicine; Visit Provider Specialist | DX: R20.0 Anesthesia of skin (principal); G40.119 Localization-related (focal) (partial) symptomatic epilepsy and epileptic syndromes with simple partial seizures, intractable, without status epilepticus; G40.219 Localization-related (focal) (partial) symptomatic epilepsy and epileptic syndromes with complex partial seizures, intractable, without status epilepticus | CPT/HCPCS: 99214; 99215 ==

== ENCOUNTER 2023-12-16 14:12 | Emergency (ER) | payer MEDICAID, SELFPAY ==
[2023-12-16 14:39] VITALS: BP 130/80; PULSE 87; RESP 18; TEMP 36.7; O2SAT 100
--- NOTE | 2023-12-16 16:14 | CTR_ITS ---
PROCEDURE INFORMATION: Exam: CT Head Without Contrast Exam date and time: 12/16/2023 4:20 PM Age: 33 years old Clinical indication: Injury or trauma; Fall; Blunt trauma (contusions or hematomas); Consciousness not specified; Additional info: Head injury seizures TECHNIQUE: Imaging protocol: Computed tomography of the head without contrast. Radiation optimization: All CT scans at this facility use at least one of these dose optimization techniques: automated exposure control; mA and/or kV adjustment per patient size (includes targeted exams where dose is matched to clinical indication); or iterative reconstruction. COMPARISON: CT head wo con* [id number] 12/11/2023 1:04 PM RADIATION DOSE METRICS: Total DLP (mGy-cm): 1042.58 FINDINGS: Brain: Normal. No hemorrhage. Unremarkable white matter. No mass effect. Cerebral ventricles: No ventriculomegaly. Paranasal sinuses: Mucosal disease of the right sphenoid sinus. Mastoid air cells: Visualized mastoid air cells are well aerated. Bones: Unremarkable. No acute fracture. Soft tissues: Unremarkable. CT/CT head wo con* [id number] IMPRESSION: No intracranial posttraumatic changes.
--- NOTE | 2023-12-16 16:14 | XRR_ITS ---
PROCEDURE INFORMATION: Exam: XR Abdomen Exam date and time: 12/16/2023 4:36 PM Age: 33 years old Clinical indication: Constipation and nausea; Additional info: Nausea / constipation TECHNIQUE: Imaging protocol: Radiologic exam of the abdomen. Views: Frontal supine view of the abdomen. 1 View. COMPARISON: CT Chest/Abdomen/Pelvis wo IV 03/12/2019 4:13 PM FINDINGS: Gastrointestinal tract: Above average fecal loading in the colon. Calcification overlying the colon, likely representing ingested material. Bones/joints: Unremarkable. XR/XR KUB portable [id number] IMPRESSION: Above average fecal loading in the colon, consistent with constipation.
--- NOTE | 2023-12-16 16:15 | W.ED.HA ---
HPI - Headache General: Chief Complaint: Headache Stated Complaint: N/V, Dizzy, headache Time Seen by Provider: 12/16/23 16:00 History of Present Illness: 33-year-old male who presents with persistent headache and associated nausea. The patient had a seizure 1 week ago, striking his head. He was seen in the emergency department at that time, had a subtherapeutic Depakote level. There was a questionable area of subarachnoid hemorrhage in addition. Patient was seen and followed by his neurologist and had his Depakote dose increased. He states he has had no further seizures but has had ongoing nausea as well as recurrent headaches. He is also having dizziness which she describes as a feeling of lightheadedness. He has had decreased p.o. intake due to the nausea. He has not had a bowel movement for the past week. He has not tried anything to get his bowels to move. He has been passing flatus. He states the last time he vomited was this morning Of note, the patient was witnessed to be eating beef jerky in the room when the nurse entered Related Data Previous Rx's Medication Instructions Recorded sulindac 200 mg tablet 200 mg PO BID PRN arthritis pain 03/27/23 #20 tabs hydrocodone 5 mg-acetaminophen 325 1 tab PO Q6H PRN pain #14 tabs 11/13/23 mg tablet clotrimazole 1 % topical cream 1 applic topical BID 2 weeks #30 11/14/23 (Lotrimin AF (clotrimazole)) grams Clavicle strap #1 ea 11/15/23 meloxicam 15 mg tablet 15 mg PO DAILY #30 tabs 11/15/23 alprazolam 0.5 mg tablet 0.5 mg PO DAILY PRN anxiety #30 12/04/23 tabs divalproex 500 mg tablet,extended 500 mg PO DAILY #300 tabs 12/13/23 release 24 hr (Depakote ER) ondansetron HCl 4 mg tablet 4 mg PO Q6H PRN nausea and 12/16/23 vomiting #20 tabs peg 3350-electrolytes 236 240 ml PO Q10M #240 mL 12/16/23 gram-22.74 gram-6.74 gram-5.86 gram solution (Golytely) Allergies Allergy/AdvReac Type Severity Reaction Status Date / Time No Known Allergies Allergy Verified 12/13/23 12:35 Review of Systems General: Reports: 10 or more systems reviewed and unremarkable except in HPI and below PFSH ED PFSH: Medical History Polymyalgia Chronic pain due to 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 Active and talkative. Does not appear ill appearing Const: COMMON NORMALS: patient oriented x3 HENMT: COMMON NORMALS: normocephalic, atraumatic and moist oral mucous membranes HEAD & SCALP: normocephalic and atraumatic Eye: COMMON NORMALS: Equal, round and reactive pupils present and EOMs intact bilaterally PUPIL: Yes Equal, round and reactive pupils present Neck/C-Spine: OTHER: Trachea midline Resp: COMMON NORMALS: normal respiratory effort and clear to auscultation bilaterally AUSCULTATION: clear to auscultation bilaterally Cardio: COMMON NORMALS: regular rate and regular rhythm RATE: regular rate RHYTHM: regular rhythm GI: COMMON NORMALS: Normal to inspection, nondistended, normoactive bowel sounds present, Soft to palpation and no masses PALPATION: Yes Soft to palpation Extremity: COMMON NORMALS: no pedal edema Neuro: COMMON NORMALS: patient oriented x3, CN's II-XII intact bilaterally, moves all extremities, no focal motor deficits, no sensory deficits noted and gait normal Course ED course: Patient has had an IV placed and labs obtained. He is been given a total of 2 L of normal saline. He was given Zofran for nausea and morphine for pain. He had a CT of his head which shows no acute findings. He had a KUB of his abdomen which shows changes consistent with constipation but no bowel obstruction or other abnormalities. Nausea has improved after Zofran. Will p.o. challenge the patient. White blood cell count is normal. Patient is hypoglycemic with a glucose of 52. He has been given juice and crackers as well as 1 amp of D10. Repeat blood sugar is 134. Patient's Depakote level is slightly subtherapeutic but given no further seizures after his dose was increased this past week, we will continue him at his current dose. I have instructed the patient to take Colace twice daily as well as MiraLAX daily. I have given him a prescription for GoLytely in the event the MiraLAX and Colace do not work. Have also given him Zofran to take every 4-6 hours as needed for nausea and vomiting. I have instructed him that he needs to eat regular meals and snacks to avoid his blood sugar dropping. He needs to be on a high-fiber diet as well as drink plenty of fluids. Return if he has worsening abdominal pain, persistent vomiting or no results after GoLytely. Follow-up next week with his primary care provider Reevaluation(s): Reevaluation #1: Nausea improved. Complains of headache. Will give IV morphine. Will p.o. challenge Time: 17:19 Reevaluation #2: Patient is tolerating p.o. fluids. Headache is improved after morphine. Patient has been given crackers and juice and D10 with improvement of his blood sugar and had no further vomiting Vital Signs: Vital signs: Vital Signs Temperature 98.1 F 12/16/23 14:39 Pulse Rate 87 12/16/23 14:39 Respiratory Rate 17 12/16/23 17:26 Blood Pressure 130/80 12/16/23 14:39 Pulse Oximetry 98 12/16/23 17:26 Oxygen Delivery Me thod Room Air 12/16/23 14:39 MDM - Headache Medical Decision Making 33-year-old male who presents with persistent headaches, associated with nausea and vomiting. He is also been constipated, not having had a bowel movement for the past week. The patient was seen here 1 week ago after having a seizure and striking his head. At that time there was a questionable area of small subarachnoid hemorrhage. Because of persistent headaches and nausea, the patient's been instructed by his neurologist to return to the emergency department. Will start an IV, obtain labs and give the patient IV Zofran for nausea. Will obtain a KUB to evaluate his constipation and rule out possible bowel obstruction. Will obtain a CT of his head to further evaluate the persistent headache. Suspect that the patient's headache and nausea are postconcussive symptoms related to him hitting his head from the seizure that he had 1 week ago. Will also check a Depakote level. Differential Diagnosis Likely migraine, tension headache, subarachnoid hemorrhage, headache and postconcussion syndrome Medical Records Reviewed medical records from the patient's most recent visit. He did have a questionable area of subarachnoid hemorrhage on his CT. The patient Depakote level was subtherapeutic. He followed up with Dr. Mei and his Depakote dosing has been increased. Lab Data Patient's white blood cell count is normal. His hemoglobin is normal at 15. 12/16/23 16:49 12/16/23 16:[address] 12/16/23 16:14 IMPRESSION: No intracranial posttraumatic changes. KUB X-Ray 12/16/23 16:14 IMPRESSION: Above average fecal loading in the colon, consistent with constipation. Laboratory Results WBC 8.55 10^3/uL (3.29-11.43) 12/16/23 16:49 RBC 5.09 10^6/uL (3.85-5.65) 12/16/23 16:49 Hgb 15.00 g/dL (11.27-16.99) 12/16/23 16:49 Hct 45.5 % (37-53) 12/16/23 16:49 MCV 89.4 fl (82-101) 12/16/23 16:49 MCH 29.5 pg (27-33) 12/16/23 16:49 MCHC 33.0 g/dL (30-55) 12/16/23 16:49 RDW 12.5 % (12.1-15.1) 12/16/23 16:49 Plt Count 228 10^3/cmm (157-399) 12/16/23 16:49 MPV 10.0 fL (7.4-10.4) 12/16/23 16:49 Neut % (Auto) 52.4 % 12/16/23 16:49 Lymph % (Auto) 39.2 % 12/16/23 16:49 [place] % (Auto) 6.8 % 12/16/23 16:49 Eos % (Auto) 0.8 % 12/16/23 16:49 Baso % (Auto) 0.6 % 12/16/23 16:49 Neut # (Auto) 4.48 10^3/uL (1.8-7.7) 12/16/23 16:49 Lymph # (Auto) 3.4 10^3/uL (0.8-4.8) 12/16/23 16:49 [place] # (Auto) 0.6 10^3/uL (0.2-0.9) 12/16/23 16:49 Eos # (Auto) 0.1 10^3/uL (0.0-0.8) 12/16/23 16:49 Baso # (Auto) 0.1 10^3/uL (0.0-0.1) 12/16/23 16:49 Nucleated RBC % (auto) 0 % 12/16/23 16:49 Nucleated RBCs # 0.0 /100WBC 12/16/23 16:49 Sodium 141 mmol/L (136-145) 12/16/23 16:49 Potassium 3.8 mmol/L (3.5-5.1) 12/16/23 16:49 Chloride 100 mmol/L (98-107) 12/16/23 16:49 Carbon Dioxide 31 mmol/L (22-29) H 12/16/23 16:49 Anion Gap 13.8 (5-19) 12/16/23 16:49 BUN 10 mg/dL (6-20) 12/16/23 16:49 Creatinine 0.7 mg/dL (0.7-1.2) 12/16/23 16:49 GFR Calculation 131.5 mL/min (90-130) H 12/16/23 16:49 Glucose 52 mg/dL (65-115) L 12/16/23 16:49 POC Glucose 134 mg/dL (70-110) H 12/16/23 18:20 Calculated Osmolality 288 mOsm/kg (285-295) 12/16/23 16:49 Calcium 9.6 mg/dL (8.5-10.5) 12/16/23 16:49 Magnesium 2.0 mg/dL (1.7-2.3) 12/16/23 16:49 Total Bilirubin 0.4 mg/dL (0.15-1.2) 12/16/23 16:49 AST 16 U/L (0-40) 12/16/23 16:49 ALT 18 U/L (0-41) 12/16/23 16:49 Alkaline Phosphatase 106 U/L (40-130) 12/16/23 16:49 Total Protein 7.9 g/dL (6.6-8.7) 12/16/23 16:49 Albumin 4.7 g/dL (3.5-5.2) 12/16/23 16:49 Globulin 3.2 g/dL (1.3-4.6) 12/16/23 16:49 Urine Color Yellow (Yellow) 12/16/23 17:34 Urine Appearance Clear (CLEAR) 12/16/23 17:34 Urine pH 6.0 (5-7) 12/16/23 17:34 Ur Specific [place] 1.013 (1.005-1.030) 12/16/23 17:34 Urine Protein Negative (Negative) 12/16/23 17:34 Urine Glucose (UA) Negative (Normal) 12/16/23 17:34 Urine Ketones Negative (Negative) 12/16/23 17:34 Urine Blood Non-haemolysed trace (Negative) 12/16/23 17:34 Urine Nitrate Negative (Negative) 12/16/23 17:34 Urine Bilirubin Negative (Negative) 12/16/23 17:34 Urine Urobilinogen 1.0 mg/dL (Negative) 12/16/23 17:34 Ur Leukocyte Esterase Negative (Negative) 12/16/23 17:34 Urine RBC 0-2 /hpf (0-2) 12/16/23 17:34 Urine WBC 0-5 /hpf (0-5) 12/16/23 17:34 Ur Squamous Epith Cells 0-5 /hpf (0-5) 12/16/23 17:34 Amorphous Sediment Not Reportable 12/16/23 17:34 Urine Bacteria None seen /hpf (NONE) 12/16/23 17:34 Hyaline Casts 0-4 /lpf H 12/16/23 17:34 Urine Opiates Screen Negative ng/mL (Negative) 12/16/23 17:34 Ur Barbiturates Screen Negative ng/mL (Negative) 12/16/23 17:34 Valproic Acid 41.2 ug/mL (50-100) L 12/16/23 16:49 Ur Phencyclidine Scrn Negative ng/mL (Negative) 12/16/23 17:34 Ur Amphetamines Screen Negative ng/mL (Negative) 12/16/23 17:34 U Benzodiazepines Scrn Negative ng/mL (Negative) 12/16/23 17:34 Urine Cocaine Screen Negative ng/mL (Negative) 12/16/23 17:34 U Marijuana (THC) Screen Positive ng/mL (Negative) H 12/16/23 17:[address] Head: Radiologist's impression: CT of the head per the radiologist shows no acute findings All radiology interpretation(s) finalized by discharge ED provider radiology interpretation(s): KUB of the abdomen per my interpretation shows large amount of stool throughout the colon, no free air or air-fluid levels. Per radiology, increased fecal load but no acute intra-abdominal pathology per the radiologist. Discharge Plan Discharge Patient Disposition: Home Clinical Impression: Constipation, Hypoglycemia, Nausea & vomiting, Chronic headache Condition: Stable Prescriptions: New Golytely 236-22.74-6.74 -5.86 gram recon soln 240 ml PO Q10M Qty: 240 0RF Rx Instructions: until fecal effluent is clear ondansetron HCl 4 mg tablet 4 mg PO Q6H PRN (Reason: nausea and vomiting) Qty: 20 0RF No Action sulindac 200 mg tablet 200 mg PO BID PRN (Reason: arthritis pain) Qty: 20 0RF divalproex [Depakote ER] 500 mg tablet extended release 24 hr 500 mg PO DAILY Qty: 300 3RF (DME) Clavicle strap See Rx Instructions .Route .MEDSUPPLY Qty: 1 0RF Rx Instructions: As directed meloxicam 15 mg tablet 15 mg PO DAILY Qty: 30 2RF clotrimazole [Lotrimin AF (clotrimazole)] 1 % cream 1 applic topical BID 14 Days Qty: 30 2RF alprazolam 0.5 mg tablet 0.5 mg PO DAILY PRN (Reason: anxiety) Qty: 30 0RF hydrocodone-acetaminophen 5-325 mg tablet 1 tab PO Q6H PRN (Reason: pain) Qty: 14 0RF Discharge Orders: Discharge ED (Routine); Ordered 12/16/23 Ordered By: Elina Pickering Referrals: Johnie Feng MD [Primary Care Provider] - Discharge Diet: Advance as tolerated Discharge Activity: Resume usual activity Patient Instructions: Hypoglycemia, Constipation (ED), Chronic Post Traumatic Headache (ED), Opioid Safety, Pain Management, Vomiting - Adult Activity Restrictions/Additional Instructions: You are drinking plenty of fluids. Eat a high-fiber diet. You need to eat regular meals and snacks preferably high-protein foods. Take MiraLAX 1 capful twice daily as well as Colace twice daily to try to get your bowels to move. If you do not get results after taking MiraLAX and Colace, you can picker feeder the GoLytely which is a surgical bowel preparation. Drink 8 ounces of that every 30 minutes until your bowels are unclear. You can take the Zofran every 6 hours as needed for nausea and vomiting. Return if you have any worsening symptoms Tylenol and/or ibuprofen as needed for pain. 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
[2023-12-16] MEDS: sodium chloride 0.9% 1,000 ML 999 ML IV (16:56)
[2023-12-16] MEDS: ondansetron 2 mg/ML SDV 2 mL 4 MG IVP (16:56)
[2023-12-16 17:05] LABS: Basophils # 0.1 10^3/uL (0.0-0.1); Basophils % 0.6 %; Eosinophils # 0.1 10^3/uL (0.0-0.8); Eosinophils % 0.8 %; Hematocrit 45.5 % (37-53); Lymphocytes # 3.4 10^3/uL (0.8-4.8); Lymphocytes % 39.2 %; Mean Corpuscular Hemoglobin 29.5 pg (27-33); Mean Corpuscular Volume 89.4 fl (82-101); Monocytes # 0.6 10^3/uL (0.2-0.9); Monocytes % 6.8 %; Neutrophils # 4.48 10^3/uL (1.8-7.7); Neutrophils % 52.4 %; Nucleated Red Blood Cells % 0 %; Platelet Count 228 10^3/cmm (157-399); Red Blood Count 5.09 10^6/uL (3.85-5.65); Red Cell Distribution Width 12.5 % (12.1-15.1); White Blood Count 8.55 10^3/uL (3.29-11.43)
[2023-12-16 17:19] LABS: Alanine Aminotransferase 18 U/L (0-41); Albumin Level 4.7 g/dL (3.5-5.2); Alkaline Phosphatase 106 U/L (40-130); Anion Gap 13.8 (5-19); Aspartate Amino Transferase 16 U/L (0-40); Blood Urea Nitrogen 10 mg/dL (6-20); Calcium 9.6 mg/dL (8.5-10.5); Carbon Dioxide 31 mmol/L (22-29); Chloride 100 mmol/L (98-107); Globulin 3.2 g/dL (1.3-4.6); Glomerular Filtration Rate 131.5 mL/min (90-130); Glucose 52 mg/dL (65-115); Osmolality Calculated 288 mOsm/kg (285-295); Potassium 3.8 mmol/L (3.5-5.1); Sodium 141 mmol/L (136-145); Total Bilirubin 0.4 mg/dL (0.15-1.2); Total Protein 7.9 g/dL (6.6-8.7)
[2023-12-16 17:20] LABS: Valproic Acid Level 41.2 ug/mL (50-100)
[2023-12-16 17:26] VITALS: RESP 17; O2SAT 98
[2023-12-16] MEDS: morphine 4 mg/mL SDV 1 mL IVP (17:26)
[2023-12-16 17:39] LABS: Charge for UA Resulting for Rev
[2023-12-16 17:42] LABS: Bilirubin Urine Negative (Negative); Blood Urine Non-haemolysed trace (Negative); Glucose Urine UA Negative (Normal); Ketones Urine Negative (Negative); Leukocyte Esterase Urine Negative (Negative); Nitrate Urine Negative (Negative); Protein Urine Negative (Negative); Specific Gravity, Urine 1.013 (1.005-1.030); Urine Appearance Clear (CLEAR); Urine Color Yellow (Yellow)
[2023-12-16 17:45] LABS: Bacteria Urine None Seen /hpf; Hyaline Casts Urine 0-4 /lpf; RBC Urine 0-2 /hpf (0-2); Squamous Epithelial Cell Urine 0-5 /hpf (0-5); WBC Urine 0-5 /hpf (0-5)
[2023-12-16 17:49] LABS: Amphetamines Screen Urine Negative (Negative); Barbiturates Screen Urine Negative (Negative); Benzodiazepines Screen Urine Negative (Negative); Cocaine Screen Urine Negative (Negative); Opiate Screen Urine Negative (Negative); PCP Screen Urine Negative (Negative); THC Screen Urine Positive (Negative)
[2023-12-16] MEDS: dextrose 10% 250 ML 1000 ML IV (17:53)
[2023-12-16 18:24] LABS: Glucose Point of Care 134 mg/dL (70-110)
== END 2023-12-16 18:44 | disposition home or self-care (01) ==
PROVIDERS: Emergency Provider Emergency Medicine; PCP Family Medicine
DX: K59.00 Constipation, unspecified (principal); R11.2 Nausea with vomiting, unspecified; R51.9 Headache, unspecified; E16.2 Hypoglycemia, unspecified
CPT/HCPCS: 36416; 70450; 74018; 80053; 80164; 80306; 81003; 81015; 82962; 83735; 85025; 96374; 96375; 99285; J2270; J2405; J7030; J7799

== ENCOUNTER → 2024-12-11 08:11 | Outpatient (BNVA) | payer SELFPAY | PROVIDERS: PCP Family Medicine | DX: S92.411A Displaced fracture of proximal phalanx of right great toe, initial encounter for closed fracture (principal); S97.81XA Crushing injury of right foot, initial encounter; X58.XXXA Exposure to other specified factors, initial encounter | CPT/HCPCS: 73630 ==

== ENCOUNTER 2024-12-11 14:08 | Outpatient (CLI) | payer SELFPAY | END 2024-12-11 14:09 | disposition home or self-care (01) | LOC: SPT 14:13 | PROVIDERS: PCP Family Medicine; Visit Provider Podiatrist Foot & Ankle Surgery | DX: Z46.89 Encounter for fitting and adjustment of other specified devices (principal); S92.411D Displaced fracture of proximal phalanx of right great toe, subsequent encounter for fracture with routine healing; S93.104D Unspecified dislocation of right toe(s), subsequent encounter; S97.81XD Crushing injury of right foot, subsequent encounter; X58.XXXD Exposure to other specified factors, subsequent encounter | CPT/HCPCS: L4361 ==

== ENCOUNTER → 2024-12-20 10:24 | Outpatient (BNVA) | payer SELFPAY | PROVIDERS: PCP Family Medicine; Visit Provider Podiatrist Foot & Ankle Surgery | DX: S92.414D Nondisplaced fracture of proximal phalanx of right great toe, subsequent encounter for fracture with routine healing (principal); S93.104D Unspecified dislocation of right toe(s), subsequent encounter; W20.8XXD Other cause of strike by thrown, projected or falling object, subsequent encounter | CPT/HCPCS: 73630 ==

== ENCOUNTER → 2025-01-13 08:07 | Outpatient (BNVA) | payer SELFPAY | PROVIDERS: PCP Family Medicine; Visit Provider Podiatrist Foot & Ankle Surgery | DX: S92.414D Nondisplaced fracture of proximal phalanx of right great toe, subsequent encounter for fracture with routine healing (principal); S97.81XD Crushing injury of right foot, subsequent encounter; S93.104D Unspecified dislocation of right toe(s), subsequent encounter; X58.XXXA Exposure to other specified factors, initial encounter | CPT/HCPCS: 73630 ==